=== PATIENT | male | born 1965 | race African-American/Black ===

== ENCOUNTER 2023-04-16 13:47 | Emergency (ER) | payer MEDICAID ==
[~2023-04-16] VITALS: Ht 175.3 cm; Wt 80.0 kg
[2023-04-16 13:53] VITALS: BP 170/117; PULSE 94; RESP 16; TEMP 98.5; O2SAT 97
== END 2023-04-16 16:25 | disposition left against medical advice (07) ==
LOC: ER 13:47
DX: R04.0 Epistaxis (principal); I50.9 Heart failure, unspecified
CPT/HCPCS: 99283

== ENCOUNTER 2023-06-17 09:10 | Emergency (ER) | payer MEDICAID ==
[~2023-06-17] VITALS: Ht 175.3 cm; Wt 73.0 kg
[2023-06-17 09:15] VITALS: BP 162/100; PULSE 104; RESP 16; TEMP 98.5; O2SAT 99
[2023-06-17] MEDS ORDERED: TRANEXAMIC ACID 1,000 MG/10 ML TP ONE (09:30)
== END 2023-06-17 13:00 | disposition home or self-care (01) ==
LOC: ER 09:21
DX: R04.0 Epistaxis (principal); I11.0 Hypertensive heart disease with heart failure; I50.9 Heart failure, unspecified
CPT/HCPCS: 99283

== ENCOUNTER 2024-12-28 13:51 | Inpatient (IN) | payer MEDICAID ==
[~2024-12-28] VITALS: Ht 175.3 cm; Wt 65.8 kg
[2024-12-28 14:48] LABS: BASOPHILS % 0.9 % (0.0-2.0); EOSINOPHILS % 0.2 % (0.0-5.0); HEMATOCRIT. 40.4 % (42.0-52.0); HEMOGLOBIN. 13.3 g/dL (14.0-18.0); LYMPHOCYTES % 28.8 % (20.0-50.0); MEAN PLATELET VOLUME 8.2 fl (7.4-10.4); MONOCYTES % 9.4 % (2.0-8.0); NEUTROPHILS % 60.7 % (40.0-76.0); PLATELET 209 x1000/uL (130-400); RED BLOOD CELL COUNT 3.92 mill/uL (4.7-6.1); RED CELL DISTRIBUTION WIDTH 12.8 % (11.6-14.6)
[2024-12-28] MEDS: MORPHINE SULFATE 4 MG/ML INJ (FOR IV/IM USE) IV ONE (14:52)
[2024-12-28] MEDS: ONDANSETRON HCL 4MG/2ML INJ IV ONE (14:53)
[2024-12-28 15:08] LABS: CREATININE 1.1 mg/dL (0.6-1.3); UREA NITROGEN BLOOD 10 mg/dL (9-23)
[2024-12-28 15:09] LABS: TROPONIN I HIGH SENSITIVITY 27 ng/L (3.0-53)
[2024-12-28 15:10] LABS: ASPARTATE AMINOTRANSFERASE 48 IU/L (<34); BILIRUBIN DIRECT 0.6 mg/dL (<=3.0); BILIRUBIN TOTAL 1.7 mg/dL (0.1-1.0); PROTEIN TOTAL 6.0 g/dL (6.0-8.3)
[2024-12-28 15:27] LABS: ETHANOL BLOOD 192 mg/dL (<10)
[2024-12-28 18:35] VITALS: BP 132/98; PULSE 113; RESP 16; TEMP 36.2; O2SAT 96
[2024-12-28] MEDS ORDERED: LOSA25TA26 PO (19:36)
[2024-12-28] MEDS ORDERED: ASPI-1160 PO (19:36)
[2024-12-28] MEDS ORDERED: METO-385 PO (19:36)
[2024-12-28] MEDS ORDERED: ONDANSETRON HCL 4MG/2ML INJ IV PRN ×2 (19:45→23:15)
[2024-12-28] MEDS ORDERED: ACETAMINOPHEN 325MG TABLET PO PRN (19:45)
[2024-12-28 20:00] VITALS: BP_SYST 122; BP_SYST 123; BP_DIAS 64; BP_DIAS 84; PULSE 101; PULSE 114; RESP 18; RESP 20; TEMP 36.6404; TEMP 36.7; O2SAT 99
[2024-12-28 21:25] LABS: LDL CHOLESTEROL 81.0 mg/dL (5-100); TRIGLYCERIDE 119.0 mg/dL (0-150)
[2024-12-28 21:28] LABS: T4 FREE 1.24 ng/dL (0.89-1.76)
[2024-12-28] MEDS: PANTOPRAZOLE SODIUM 40 MG/VIAL IV SCH (22:09)
[2024-12-28] MEDS: FUROSEMIDE 40MG/4ML VIAL IVP SCH (22:09)
[2024-12-28] MEDS ORDERED: NALOXONE HCL 0.4MG/ML VIAL IV PRN (23:15)
[2024-12-28] MEDS: ZOLPIDEM TARTRATE 5MG TABLET PO PRN (23:47)
[2024-12-28 23:51] LABS: CLARITY URINE CLEAR (CLEAR); COLOR URINE DARK YELLOW (YELLOW); GLUCOSE URINE NEGATIVE (NEGATIVE); KETONES URINE TRACE (NEGATIVE); LEUKOCYTE ESTERASE URINE NEGATIVE (NEGATIVE); NITRITE URINE NEGATIVE (NEGATIVE); OCCULT BLOOD URINE NEGATIVE (NEGATIVE); PH URINE 5.0 (4.5-8.0); PROTEIN URINE 2+ (NEGATIVE); SPECIFIC GRAVITY URINE 1.021 (1.005-1.030); UROBILINOGEN URINE 1.0 E.U./dL (0.2-1.0)
[2024-12-28] MEDS ORDERED: CETI10CA11 MT (23:52)
[2024-12-28] MEDS ORDERED: FURO40TA5 MT (23:52)
[2024-12-29] VITALS (7 sets, daily range): BP systolic 108–161; BP diastolic 77–97; PULSE 96–111; RESP 16–19; TEMP 36.2–36.6; O2SAT 93–100
[2024-12-29 00:01] LABS: *AMPHETAMINES SCREEN URINE NEGATIVE (NEGATIVE); *BARBITURATES SCREEN URINE NEGATIVE (NEGATIVE); *BENZODIAZEPINES SCREEN URINE NEGATIVE (NEGATIVE); *COCAINE SCREEN URINE NEGATIVE (NEGATIVE); CANNABINOID URINE SCREEN NEGATIVE (NEGATIVE); ECSTASY MDMA SCREEN URINE NEGATIVE (NEGATIVE); METHADONE URINE SCREEN NEGATIVE (NEGATIVE); OPIATES URINE SCREEN PRESUMPTIVE POSITIVE (NEGATIVE); PHENCYCLIDINE URINE SCREEN NEGATIVE (NEGATIVE)
[2024-12-29 02:11] LABS: SQUAMOUS EPITHELIAL CELL URINE FEW /lpf (RARE/1+)
[2024-12-29 02:15] LABS: RBC URINE 0-2 /hpf (0-2)
[2024-12-29 02:16] LABS: BACTERIA URINE NONE SEEN
[2024-12-29 08:59] LABS: BASOPHILS % 1.5 % (0.0-2.0); EOSINOPHILS % 0.9 % (0.0-5.0); HEMATOCRIT. 39.3 % (42.0-52.0); HEMOGLOBIN. 13.3 g/dL (14.0-18.0); LYMPHOCYTES % 38.6 % (20.0-50.0); MEAN PLATELET VOLUME 8.8 fl (7.4-10.4); MONOCYTES % 10.0 % (2.0-8.0); NEUTROPHILS % 49.0 % (40.0-76.0); PLATELET 193 x1000/uL (130-400); RED BLOOD CELL COUNT 3.83 mill/uL (4.7-6.1); RED CELL DISTRIBUTION WIDTH 12.4 % (11.6-14.6)
[2024-12-29] MEDS: LOSARTAN 25 MG TABLET PO SCH (09:00)
[2024-12-29 09:09] LABS: BG BASE EXCESS -2.1 mmol/L (-2.0-3.0); BG CARBOXYHEMOGLOBIN 1.3 % (0.5-1.5); BG DEOXYHEMOGLOBIN 5.1 % (0.0-5.0); BG FLOW(L/min) 2.00 L/min; BG FRACTION INSPIRED OXYGEN 28; BG HCO3 ACT 22.5 mmol/L (21.0-28.0); BG METHEMOGLOBIN 0.2 % (0.5-1.5); BG OXYGEN SATURATION 94.8 % (94.0-98.0); BG OXYHEMOGLOBIN 93.4 % (94.0-98.0); BG PCO2 38.4 mmHg (35.0-48.0); BG PH 7.386 (7.350-7.450); BG PO2 79.4 mmHg (83.0-108.0); BG SAMPLE SITE LEFT RADIAL; BG TOTAL HEMOGLOBIN 15.3 g/dL (13.5-17.5); BG VENT MODE NASAL CANNULA
[2024-12-29 09:16] LABS: CREATININE 1.2 mg/dL (0.6-1.3)
[2024-12-29 09:17] LABS: UREA NITROGEN BLOOD 16 mg/dL (9-23)
[2024-12-29] MEDS: FOLIC ACID 1MG TABLET PO SCH (09:31)
[2024-12-29] MEDS: ASPIRIN 81MG TABLET PO SCH (09:31)
[2024-12-29] MEDS: ENOXAPARIN 40MG/0.4ML SYR SUBCUT SCH (09:32)
[2024-12-29] MEDS: METOPROLOL SUCCINATE 50MG ER TABLET PO SCH (09:32)
[2024-12-29] MEDS: THIAMINE HCL 100MG TABLET PO SCH (09:33)
[2024-12-29] MEDS: MULTIVITAMINS,THER W-MINERALS TABLET PO SCH (09:33)
[2024-12-29] MEDS: FUROSEMIDE 40MG/4ML VIAL IVP SCH (21:52)
[2024-12-30] VITALS: BP 116/86; PULSE 96; RESP 18; TEMP 36.5; O2SAT 98
[2024-12-30 04:00] VITALS: BP 108/84; PULSE 96; RESP 18; TEMP 36.6; O2SAT 98
[2024-12-30 06:56] LABS: CREATININE 1.3 mg/dL (0.6-1.3); UREA NITROGEN BLOOD 21 mg/dL (9-23)
[2024-12-30 06:57] LABS: TROPONIN I HIGH SENSITIVITY 14 ng/L (3.0-53)
[2024-12-30 07:02] LABS: BASOPHILS % 0.6 % (0.0-2.0); EOSINOPHILS % 0.3 % (0.0-5.0); HEMATOCRIT. 39.7 % (42.0-52.0); HEMOGLOBIN. 13.4 g/dL (14.0-18.0); LYMPHOCYTES % 30.8 % (20.0-50.0); MEAN PLATELET VOLUME 9.0 fl (7.4-10.4); MONOCYTES % 12.8 % (2.0-8.0); NEUTROPHILS % 55.5 % (40.0-76.0); PLATELET 190 x1000/uL (130-400); RED BLOOD CELL COUNT 3.89 mill/uL (4.7-6.1); RED CELL DISTRIBUTION WIDTH 12.8 % (11.6-14.6)
[2024-12-30 08:00] VITALS: BP 106/74; PULSE 87; RESP 19; TEMP 36.7; O2SAT 98
[2024-12-30 12:00] VITALS: BP 101/87; PULSE 89; RESP 18; TEMP 36.6; O2SAT 97
[2024-12-30 16:00] VITALS: BP 113/63; PULSE 89; RESP 18; TEMP 36.6; O2SAT 97
[2024-12-31] VITALS (7 sets, daily range): BP systolic 103–139; BP diastolic 77–98; PULSE 99–108; RESP 18–20; TEMP 35.9–37.1; O2SAT 95–100
[2024-12-31] MEDS: HYDROCODONE/ACETAMINOPHEN 5/325MG TABLET PO PRN (08:49)
[2024-12-31] MEDS ORDERED: LOSA25TA26 PO (11:47)
[2024-12-31] MEDS ORDERED: METO-385 PO (11:47)
[2024-12-31] MEDS ORDERED: EMPA10TA MT (11:47)
[2024-12-31] MEDS ORDERED: FURO40TA5 MT (11:47)
[2024-12-31] MEDS ORDERED: SPIR25TA6 MT (11:47)
[2025-01-01 04:00] VITALS: BP 111/87; PULSE 100; RESP 20; TEMP 36.1; O2SAT 97
[2025-01-01 08:00] VITALS: BP 116/89; PULSE 102; RESP 16; TEMP 36.7; O2SAT 100
[2025-01-01 12:00] VITALS: BP 174/134; PULSE 93; RESP 19; TEMP 36.1; O2SAT 100
[2025-01-01] MEDS: HYDRALAZINE 20MG/ML VIAL IV PRN (15:46)
[2025-01-01 16:00] VITALS: BP 102/73; PULSE 95; RESP 16; TEMP 36.7; O2SAT 100
[2025-01-01 20:00] VITALS: BP 101/66; PULSE 104; RESP 19; TEMP 36.1; O2SAT 99
[2025-01-02] VITALS: BP 99/71; PULSE 98; RESP 21; TEMP 36.2; O2SAT 96
[2025-01-02 04:00] VITALS: BP 117/88; PULSE 102; RESP 22; TEMP 36.6; O2SAT 96
[2025-01-02 08:00] VITALS: BP 169/99; PULSE 107; RESP 15; TEMP 36.4; O2SAT 100
[2025-01-02 11:17] VITALS: BP 112/83; PULSE 93; TEMP 97.7; O2SAT 100
[2025-01-02 12:00] VITALS: BP 90/70; PULSE 58; RESP 18; TEMP 36.2; O2SAT 95
== END 2025-01-02 11:40 | disposition home or self-care (01) | DRG 194 ==
LOC: ER 13:51 → EDBEDREQ 17:03 → ENRESERV 17:38 → 6WST 17:46
PROVIDERS: ADMIT Internal Medicine; ATTEND Internal Medicine
DX: I11.0 Hypertensive heart disease with heart failure (principal); J96.01 Acute respiratory failure with hypoxia; I24.9 Acute ischemic heart disease, unspecified; I50.9 Heart failure, unspecified; E80.6 Other disorders of bilirubin metabolism; F10.129 Alcohol abuse with intoxication, unspecified; F17.210 Nicotine dependence, cigarettes, uncomplicated; Y90.9 Presence of alcohol in blood, level not specified; I42.0 Dilated cardiomyopathy; Z79.899 Other long term (current) drug therapy
CPT/HCPCS: 36415; 36600; 71045; 80048; 80061; 80076; 80305; 80320; 81003; 82375; 82805; 83036; 83735; 83880; 84439; 84443; 84484; 85025; 93005; 93306; 93970; 97161; 99291; A4606; J0360; J1650; J1938; J2270; J2405; J2470; G0480